=== PATIENT | male | born 1950 | race Caucasian/White ===

== ENCOUNTER 2016-04-05 07:51 | Day surgery (SDC) | payer BC, MEDICARE ==
[~2016-04-05] VITALS: Ht 177.8 cm; Wt 114.1 kg
[~2016-04-05 07:51] MED LIST: ASA325 MG PO; COREG DPS12.5 MG PO; ZESTRIL DPS20 MG PO; ZOCOR DPS40 MG PO
--- NOTE | 2016-05-08 08:45 | OR ---
ADMIT: 04/05/2016 RM/LOC: [facility] MR#: [id number] [address] JOSE RAMON CHAPMAN [address] [id number] Operative/Delivery Room Report SEX: M AGE: 65 : 1950 SURGERY DATE: 04/05/2016 SURGEON: Yordan Acosta MD PARLIAMENTARY COUNSEL: Casa Pizarro MD PREPROCEDURE DIAGNOSES: 1. Large type 1 sliding hiatal hernia with esophagitis. 2. History of esophageal stricture with medically refractory gastroesophageal reflux disease. POSTPROCEDURE DIAGNOSES: 1. Large type 1 sliding hiatal hernia with esophagitis. 2. History of esophageal stricture with medically refractory gastroesophageal reflux disease. PROCEDURE: Laparoscopic Moreno fundoplication. INDICATIONS: The patient is a 65-year-old, with fci reflux, breakthrough symptoms, on antacid medicine, with a large hiatal hernia, esophagitis, and history of esophageal stricture, who presents for surgical anti-reflux, hiatal hernia repair, and Moreno fundoplication. DESCRIPTION OF PROCEDURE: The patient was taken to the operating room, general endotracheal anesthesia was induced. The patient's abdomen was prepped and draped in normal sterile fashion. The case was begun by making a transverse, supraumbilical 5 mm skin incision using a #11 blade. A retractable 5 mm port was placed within the abdomen. The abdomen was insufflated with CO2 to an intra-abdominal pressure of 15 mmHg. A camera was placed showing no bowel or vascular injury. Two right subcostal 5 mm ports were placed under direct vision. Two left subcostal ports, one 11 and one 5, were placed under direct vision. We placed a Rommel arm on the bed, placed a liver retractor within the intra-abdominal space, retracted the left lobe of the liver anteriorly and attached the liver retractor to our Rommel arm. We began the case with Harmonic scalpel dissection, dividing the gastrohepatic ligament, the phrenoesophageal membrane, and short gastric vessels. We noted about 6 cm hiatal hernia and we continued this dissection around the gastroesophageal junction around both the esophageal crura and well up into the mediastinum until we had a nice length of intraabdominal esophagus. We closed down the crura posteriorly with four interrupted 0 Tycron sutures and felt like we had a nice closure, plenty of room for the esophagus without any ADMIT: 04/05/2016 RM/LOC: W.04 [facility] MR#: [id number] [address] JOSE RAMON CHAPMAN [address] [place] [address] Operative/Delivery Room Report SEX: M AGE: 65 : 1950 type of obstructive process noted. I then brought the fundus in the retroesophageal window and made a 3 cm loose 360 degree wrap incorporating each fundic lip in the anterior portion of the esophageal muscle, again using three separate 0 Tycron sutures. There appeared to be no tension on this wrap, it rested nicely in the intraabdominal space. There was no bleeding noted. A 0.5% Marcaine was injected subdermally and subfascially for postoperative analgesia. The left upper quadrant 11 mm port site fascial incision was closed with [id number] Polysorb suture passer. The air was desufflated. The port sites were removed. The skin sites were closed with interrupted 4-0 Vicryl subcuticular skin stitches. Wounds were cleaned and dried and dressed. The patient tolerated the procedure without difficulty, transferred to recovery room in good condition. Yordan Acosta MD/ iglesia JOB #: [id number] CC: Yordan Aocsta, Attending Physician Chang Frey, Family Physician
== END 2016-04-05 17:05 | disposition home or self-care (01) ==
LOC: WOR 07:51 → SSS 07:51 → WOR 07:51 → UNDOADMOB 07:51 → SSS 13:30 → EDSTATUS 13:30 → SSS 17:05
PROC: 0BQS4ZZ (ICD-10-PCS; principal; 2016-04-05)
PROC: 0BQR4ZZ (ICD-10-PCS; principal; 2016-04-05)
DX: K44.9 Diaphragmatic hernia without obstruction or gangrene (principal); K22.2 Esophageal obstruction; K20.9 Esophagitis, unspecified; K21.9 Gastro-esophageal reflux disease without esophagitis; I10 Essential (primary) hypertension; E78.5 Hyperlipidemia, unspecified; I25.10 Atherosclerotic heart disease of native coronary artery without angina pectoris; G47.30 Sleep apnea, unspecified; Z79.82 Long term (current) use of aspirin; Z79.899 Other long term (current) drug therapy; Z95.1 Presence of aortocoronary bypass graft